=== PATIENT | male | born 1930 | race Caucasian/White ===

== ENCOUNTER 2016-09-05 15:48 | Emergency (ER) | payer MEDICARE ==
[2016-09-05] MEDS ORDERED: LIDOCAINE 1% 2 ML VIAL ONE (15:59)
[2016-09-05] MEDS ORDERED: BUPIVACAINE 0.5% PF 30 ML VIAL ONE (16:01)
[2016-09-05] MEDS ORDERED: MORPHINE 2 MG/ML SYRINGE ONE (16:17)
[2016-09-05] MEDS ORDERED: ceFAZolin 2 GM/50 ML 50 ML IV ONE (16:17)
[2016-09-05] MEDS: MORPHINE 2 MG/ML SYRINGE IVP STA (16:20)
[2016-09-05 16:21] LABS: BASOPHILS % (AUTO) 0.5 %; EOSINOPHILS # (AUTO) 0.3 10^3/uL (0.0-0.7); EOSINOPHILS % (AUTO) 4.3 %; HCT - HEMATOCRIT 42.2 % (42.0-52.0); HGB - HEMOGLOBIN 14.1 g/dL (14.0-18.0); LYMPHOCYTES # (AUTO) 1.1 10^3/uL (1.5-3.5); LYMPHOCYTES % (AUTO) 17.3 %; MEAN CORPUSCULAR HEMOGLOBIN 31.9 pg (27.0-31.0); MEAN CORPUSCULAR HGB CONC 33.5 g/dL (32.0-36.0); MEAN CORPUSCULAR VOLUME 95.3 fL (80.0-94.0); MEAN PLATELET VOLUME 8.8 fL (7.4-11.4); MONOCYTES # (AUTO) 0.8 10^3/uL (0.0-1.0); MONOCYTES % (AUTO) 11.3 %; NEUTROPHILS # (AUTO) 4.4 10^3/uL (1.5-6.6); NEUTROPHILS % (AUTO) 66.6 %; RED BLOOD COUNT 4.43 10^6/uL (4.70-6.10); RED CELL DISTRIBUTION WIDTH 14.1 % (12.0-15.0); UNCORRECTED WHITE BLOOD COUNT 6.6 x10^3/uL; WHITE BLOOD COUNT 6.6 x10^3/uL (4.8-10.8)
[2016-09-05] MEDS: ceFAZolin 2 GM/50 ML 50 ML IV ONE (16:23)
--- NOTE | 2016-09-05 16:30 | ED Physician Documentation ---
PD HPI UPPER EXT INJURY - Stated complaint Stated Complaint: L FINGER LAC - Chief complaint Chief Complaint: Laceration - History obtained from History obtained from: Patient, Family - History of Present Illness Location: Left, Finger (little finger and thumb) Type of injury: Other (He was using table saw, guiding piece of wood with guide stick, and the stick caught and twisted, causing injury to thumb and little finger of left hand. Has open obvious fracture deformity of the little finger at the PIP joint.) Where injury occurred: Home Timing - onset: How many hours ago (1), Today Timing - details: Abrupt onset, Still present Associated symptoms: Weakness (unable to extend finger at PIP). No: Numbness, Tingling Contributing factors: No: Anticoagulated (on Plavix), Prior ortho surgery Similar symptoms before: Has not had sx before Recently seen: Not recently seen Review of Systems Constitutional: denies: Fever, Chills Throat: denies: Sore throat Cardiac: denies: Chest pain / pressure, Palpitations Respiratory: denies: Dyspnea, Cough, Wheezing GI: denies: Abdominal Pain, Vomiting Neurologic: denies: Generalized weakness, Altered mental status, Headache PD PAST MEDICAL HISTORY - Past Medical History Cardiovascular: None, Coronary artery disease Respiratory: None Neuro: None Endocrine/Autoimmune: Type 2 diabetes GI: None, Hiatal hernia : None HEENT: None, Dental implants Psych: None Musculoskeletal: None Derm: None - Past Surgical History Past Surgical History: Yes General: Hiatal hernia repair Cardiovascular: Coronary stent HEENT: Cataracts - Present Medications Home Medications: Ambulatory Orders Medication Instructions Recorded Confirmed Amoxicillin/Potassium Clav 1 each PO BID #14 tablet 08/07/14 [Augmentin 875-125 Tablet] Clopidogrel Bisulfate [Plavix] 75 mg PO DAILY 08/07/14 08/07/14 Metformin HCl 500 mg PO BID 08/07/14 08/07/14 Pravastatin Sodium 20 mg PO DAILY 08/07/14 08/07/14 Triamcinolone 0.1% Oint [Kenalog 1 gm TOP BID 7 Days 08/07/14 0.1% Oint] - Allergies Allergies/Adverse Reactions: Allergies Allergy/AdvReac Type Severity Reaction Status Date / Time No Known Drug Allergies Allergy Verified 11/07/12 21:32 - Social History Does the pt smoke?: Yes Smoking Status: Former smoker Does the pt drink ETOH?: No Does the pt have substance abuse?: No - Immunizations Immunizations are current?: Yes - POLST Patient has POLST: No PD ED PE NORMAL - Vitals Vital signs reviewed: Yes - General General: Alert and oriented X 3, Well developed/nourished - HEENT HEENT: Atraumatic - Cardiac Cardiac: RRR, No murmur - Respiratory Respiratory: Clear bilaterally - Derm Derm: Normal color, Warm and dry - Extremities Extremities: Other (left thumb with laceration palmar side and torn skin at IP joint area. Able to flex and extend. Little finger with obvious open fracture at the PIP with laceration dorsally. Bone exposed and no tendons visible suggesting complete transection of the tendon. Finger is flexed at that joint and unable to extend at all. No FB seen. The wound is irrigated with copious NS. ) - Neuro Neuro: Alert and oriented X 3, No sensory deficit, Normal speech, Other (unable to extend at PIP joint little finger due to tendon injury.) Results - Vitals Vitals: Vital Signs - 24 hr 09/05/16 09/05/16 15:54 18:26 Temperature 36 C L Heart Rate 65 59 L Respiratory 14 16 Rate Blood Pressure 141/78 H 153/81 H O2 Saturation 96 98 Oxygen O2 Source Room air - Labs Labs: Laboratory Tests 09/05/16 09/05/16 16:15 16:15 WBC 6.6 RBC 4.43 L Hgb 14.1 Hct 42.2 MCV 95.3 H MCH 31.9 H MCHC 33.5 RDW 14.1 Plt Count 177 MPV 8.8 Neut # 4.4 Lymph # 1.1 L Antelope # 0.8 Eos # 0.3 Baso # 0.0 Absolute Nucleated RBC 0.00 Nucleated RBCs 0.0 Sodium 140 Potassium 3.9 Chloride 106 Carbon Dioxide 27 Anion Gap 7.0 BUN 12 Creatinine 0.9 Estimated GFR (MDRD) 81 L Glucose 102 H Calcium 9.5 Total Bilirubin 1.2 H AST 37 ALT 29 Alkaline Phosphatase 66 Total Protein 7.3 Albumin 4.3 Globulin 3.0 Albumin/Globulin Ratio 1.4 Lipase 18 L - Rads (name of study) fingers xray left Radiology: Prelim report reviewed (fracture/dislocation little finger, comminuted distal part proximal and most of the middle phalanx; thumb without fracture) Procedures - Laceration (location) little finger Length in cm: 3 Wound type: Irregular, Clean Neurovascular status: Sensory intact, Vascular intact Tendon involvement: Tendon Injury Anesthesia: Marcaine 0.5% (digital block) PD MEDICAL DECISION MAKING - ED course Complexity details: reviewed results, considered differential (open fracture/ laceration with tendon disruption. Will need Ortho evaluation. Finger irrigated copiously after digital block. IV started with pain meds, and IV antibiotics. ) , d/w patient, d/w b2b sales consultant (Dr. Curry, Ortho, who refers to Hand Surgery subspecialty. I called Saleem precision dancer for Hand (patient lives [facility]), who could see patient in office tomorrow morning. There is good blood flow to distal finger, I irrigated it well, and I am able to close it adequately now, so I feel that surgery tomorrow is sufficient and Dr. Avalos felt this common and reasonable approach). ) Departure - Departure Disposition: 01 Home, Self Care Clinical Impression: Fracture of phalanx of little finger Qualifiers: Encounter type: initial encounter Fracture type: open Phalanx: middle Fracture alignment: displaced Laterality: left Qualified Code(s): S62.627B - Displaced fracture of medial phalanx of left little finger, initial encounter for open fracture Thumb laceration Qualifiers: Encounter type: initial encounter Laterality: left Qualified Code(s): S61.012A - Laceration without foreign body of left thumb without damage to nail, initial encounter Condition: Stable Record reviewed to determine appropriate education?: Yes Comments: Follow up with Dr. Avalos, Hand Surgeon - go to his office tomorrow morning at 7: 45 am (they open at 8 am, but to get there a few minutes ahead and someone would likely already be there in the office). [place] [address], [place] [address]. Do not eat nor drink after midnight tonight until you see the surgeon. Bring your disc of the xrays with you. Take the Cephalexin 500 mg 4 times daily, and use Tylenol or hydrocodone as needed for pain. Leave our dressings on overnight until you see the surgeon. Do not take your Plavix in the morning. Discharge Date/Time: 09/05/16 18:20
[2016-09-05 16:34] LABS: ALBUMIN/GLOBULIN RATIO 1.4 (1.0-2.2); BILIRUBIN,TOTAL 1.2 mg/dL (0.2-1.0); CALCIUM 9.5 mg/dL (8.5-10.3); CREATININE 0.9 mg/dL (0.6-1.2); POTASSIUM 3.9 mmol/L (3.5-5.0); TOTAL PROTEIN 7.3 g/dL (6.7-8.2)
[2016-09-05] MEDS: BUPIVACAINE 0.5% PF 30 ML VIAL SUBQ STA (16:51)
--- NOTE | 2016-09-05 17:46 | XRAY Report ---
EXAM: LEFT FINGER RADIOGRAPHY EXAM DATE: 09/05/2016 05:02 PM. CLINICAL HISTORY: Left thumb and fifth finger versus table saw. COMPARISON: None. TECHNIQUE: 3 views. FINDINGS: Bones: Markedly comminuted fractures of the fifth proximal phalangeal head and fifth middle phalanx, with fracture lines extending through the PIP joint space. Obliquely oriented linear cortical defect along the palmar surface of the first distal phalanx seen on 1 of 2 lateral projections, and subtle v ertically oriented linear lucencies extending through the medial and lateral bases of the first dista l phalanx on the frontal view, possibly representing nondisplaced intra-articular fractures of the fi rst distal phalangeal base. Joints: Palmar dislocation at the fifth PIP joint. Soft Tissues: Soft tissue swelling and laceration overlying the fifth digit and palmar aspect of the distal first digit. IMPRESSION: 1. Markedly comminuted open fracture of the fifth proximal phalangeal head and fifth middle phalanx, with associated disruption and palmar dislocation at the PIP joint. 2. Questionable nondisplaced intra-articular fractures of the first proximal phalangeal base, versus variant anatomy or artifact such as prominent vascular channels. [facility] Referring Provider Line: [phone] SITE ID: [id number]
[2016-09-05] MEDS: HYDROcod/ACET 5/325 Prepack 6 PO ONE (18:20)
[2016-09-05] MEDS: CEPHALEXIN 250 MG Prepack 8 PO ONE (18:20)
[2016-09-05 18:27] VITALS: BP 153/81
[2016-09-05] MEDS ORDERED: CEPHALEXIN 250 MG Prepack 8 PO ONE (18:33)
[2016-09-05] MEDS ORDERED: HYDROcod/ACET 5/325 Prepack 6 PO ONE (18:34)
== END 2016-09-05 18:20 | disposition home or self-care (01) ==
LOC: ED 15:48
DX: S62.627B Displaced fracture of middle phalanx of left little finger, initial encounter for open fracture (principal); S62.617B Displaced fracture of proximal phalanx of left little finger, initial encounter for open fracture; S61.012A Laceration without foreign body of left thumb without damage to nail, initial encounter; W31.2XXA Contact with powered woodworking and forming machines, initial encounter; Y92.019 Unspecified place in single-family (private) house as the place of occurrence of the external cause; E11.9 Type 2 diabetes mellitus without complications; I25.10 Atherosclerotic heart disease of native coronary artery without angina pectoris; Z87.891 Personal history of nicotine dependence
CPT/HCPCS: 12002; 36415; 73140; 80053; 83690; 85025; 96374; 96375; 99284

== ENCOUNTER 2016-12-25 07:01 | Outpatient (CLI) | payer MEDICARE | END 2016-12-25 07:02 | disposition EMS.NT | LOC: EMS 07:01 | PROVIDERS: ATTEND Surgery | DX: R53.1 Weakness (principal) ==

== ENCOUNTER 2017-03-03 10:42 | Outpatient (CLI) | payer MEDICARE | END 2017-03-03 10:43 | disposition EMS.NT | LOC: EMS 10:42 | PROVIDERS: ATTEND Surgery | DX: R53.1 Weakness (principal) ==

== ENCOUNTER 2017-03-24 12:15 | Outpatient (CLI) | payer MEDICARE ==
[~2017-03-24 12:15] MED LIST: IOPAMIDOL-300 100 ML VIAL ONE
[2017-03-24] MEDS ORDERED: IOPAMIDOL-300 100 ML VIAL IVP ONE ×2 (12:16→13:36)
--- NOTE | 2017-03-29 15:32 | CT Report ---
HEAD CT WITH AND WITHOUT CONTRAST: 03/24/2017 COMPARISON: Head CT 11/07/2012. INDICATION: TIA symptoms. TECHNIQUE: Axial images of the brain was performed with and without intravenous contrast, 80 mL of Isovue-300. Coronal and sagittal reformats were performed. FINDINGS There are chronic-appearing low attenuating periventricular and deep white matter foci, consistent with small vessel ischemic disease. No areas of edema are visualized. No abnormal enhancement. No evidence of intracranial mass or hemorrhage. No midline shift. The paranasal sinuses and mastoid air cells appear well aerated. IMPRESSION: NO EVIDENCE OF ACUTE INTRACRANIAL PROCESS. OTHER IMAGING IS AVAILABLE CLINICALLY INDICATED. MTDD
== END 2017-03-24 12:16 | disposition home or self-care (01) ==
LOC: LAB 12:15
PROVIDERS: ATTEND Nurse Practitioner Family
DX: G45.9 Transient cerebral ischemic attack, unspecified (principal)
CPT/HCPCS: 36415; 70470; 82565; Q9967

== ENCOUNTER 2019-08-28 09:47 | Outpatient (CLI) | payer MEDICARE | END 2019-08-28 09:48 | disposition short-term general hospital (02) | LOC: EMS 09:47 | PROVIDERS: ATTEND Surgery | DX: R46.4 Slowness and poor responsiveness (principal); R53.1 Weakness; R47.9 Unspecified speech disturbances; R50.9 Fever, unspecified; R05 Cough | CPT/HCPCS: A0425; A0427 ==